=== PATIENT | female | born 1950 | race Caucasian/White ===

== ENCOUNTER 2016-12-10 10:41 | Outpatient (CLI) | payer MEDICARE | END 2016-12-10 10:42 | disposition home or self-care (01) | DX: Z00.00 Encounter for general adult medical examination without abnormal findings (principal) ==

== ENCOUNTER 2017-04-02 10:38 | Outpatient (CLI) | payer MEDICARE ==
--- NOTE | 2017-04-03 16:58 | Mammography Report ---
DIGITAL SCREENING MAMMOGRAM: 04/02/2017 CLINICAL INDICATION: A 66-year-old with family history of breast cancer for screening. COMPARISON: 07/2013, 05/2012, 04/2011, 04/2010. TECHNIQUE: Routine CC and MLO projections as well as bilateral laterally exaggerated craniocaudal vi ews were obtained of the breasts. NOTE: MLO positioning is limited by patient's general condition. FINDINGS: Parenchymal tissue within the breasts is predominantly fatty replaced. There are no domin ant masses, suspicious microcalcifications, or secondary signs of malignancy. In comparison to the p revious studies, there are no significant changes. IMPRESSION: NO MAMMOGRAPHIC EVIDENCE OF MALIGNANCY. NO SIGNIFICANT INTERVAL CHANGES. RECOMMENDATION: Screening mammography is recommended annually. BIRADS category 1 - negative. STANDARD QUALIFYING STATEMENTS 1. This examination was reviewed with the aid of Computed-Aided Detection (CAD). 2. A negative or benign imaging report should not delay biopsy if clinically suspicious findings are present. Consider surgical consultation if warranted. More than 5% of cancers are not identified b y imaging. 3. Dense breasts may obscure an underlying neoplasm. JOB #: [id number] EXT JOB #:[id number]
== END 2017-04-02 10:39 | disposition home or self-care (01) ==
LOC: DI.S 10:38
PROVIDERS: ATTEND Family Medicine
DX: Z12.31 Encounter for screening mammogram for malignant neoplasm of breast (principal)
CPT/HCPCS: 77067

== ENCOUNTER 2018-04-09 08:58 | Outpatient (CLI) | payer MEDICARE ==
[2018-04-09 11:43] LABS: BASOPHILS # (AUTO) 0.1 10^3/uL (0.0-0.1); BASOPHILS % (AUTO) 1.3 %; EOSINOPHILS # (AUTO) 0.3 10^3/uL (0.0-0.7); EOSINOPHILS % (AUTO) 4.6 %; HGB - HEMOGLOBIN 14.3 g/dL (12.0-16.0); LYMPHOCYTES # (AUTO) 2.3 10^3/uL (1.5-3.5); LYMPHOCYTES % (AUTO) 33.3 %; MEAN CORPUSCULAR HEMOGLOBIN 30.1 pg (27.0-31.0); MEAN CORPUSCULAR HGB CONC 33.7 g/dL (32.0-36.0); MEAN CORPUSCULAR VOLUME 89.5 fL (81.0-99.0); MEAN PLATELET VOLUME 8.7 fL (7.9-10.8); MONOCYTES # (AUTO) 0.7 10^3/uL (0.0-1.0); MONOCYTES % (AUTO) 9.4 %; NEUTROPHILS # (AUTO) 3.6 10^3/uL (1.5-6.6); NEUTROPHILS % (AUTO) 51.4 %; PLT - PLATELET COUNT 427 10^3/uL (130-450); RED BLOOD COUNT 4.74 10^6/uL (4.20-5.40); RED CELL DISTRIBUTION WIDTH 14.4 % (12.0-15.0)
[2018-04-09 12:01] LABS: ALBUMIN 3.5 g/dL (3.2-5.5); ALBUMIN/GLOBULIN RATIO 0.8 (1.0-2.2); ALKALINE PHOSPHATASE 108 IU/L (42-121); ALT ALANINE AMINOTRANSFERASE 14 IU/L (10-60); AST ASPARTATE AMINOTRANSFERASE 19 IU/L (10-42); BILIRUBIN,TOTAL 0.7 mg/dL (0.2-1.0); BUN - BLOOD UREA NITROGEN 20 mg/dL (6-20); CARBON DIOXIDE - CO2 26 mmol/L (21-32); CHLORIDE 105 mmol/L (101-111); CHOL/HDL RATIO 3.5 (<4.4); CHOLESTEROL 215 mg/dL; CREATININE 0.8 mg/dL (0.4-1.0); GFR - MDRD 72 (>89); GLUCOSE 83 mg/dL (70-100); HDL CHOLESTEROL 61 mg/dL; LDL CHOLESTEROL,CALCULATED 136 mg/dL; LDL/HDL RATIO 2.2 (<4.4); SODIUM 137 mmol/L (135-145); TOTAL PROTEIN 7.9 g/dL (6.7-8.2); VLDL CHOLESTEROL 18 mg/dL
== END 2018-04-09 08:59 | disposition home or self-care (01) ==
LOC: LAB.F 08:58
PROVIDERS: ATTEND Family Medicine
DX: Z00.00 Encounter for general adult medical examination without abnormal findings (principal); E78.5 Hyperlipidemia, unspecified
CPT/HCPCS: 36415; 80053; 80061; 83721; 85025

== ENCOUNTER 2018-07-14 13:12 | Outpatient (CLI) | payer MEDICARE ==
--- NOTE | 2018-07-15 07:05 | Ultrasound Report ---
Reason: PAIN IN LEFT LOWER LIMB Procedure Date: 07/14/2018 Accession Number: [id number] / [id number] Procedure: US - Duplex Ext Veins Left CPT Code: FULL RESULT: EXAM: LEFT LOWER EXTREMITY VENOUS ULTRASOUND EXAM DATE: 07/14/2018 03:04 PM. CLINICAL HISTORY: PAIN IN LEFT LOWER LIMB. COMPARISON: None. TECHNIQUE: Real-time sonographic vascular imaging was performed by the innersole maker through the lower extremity utilizing both color-flow and Doppler spectral analysis. Multiple fundraising sale representative static images were saved for review. FINDINGS: Common Femoral Vein (CFV): Normal. CFV-GSV Junction: Normal. Profunda Femoral Vein (PFV): Normal. Femoral Vein (FV) Prox: Normal. Femoral Vein (FV) Mid: Normal. Femoral Vein (FV) Dist: Normal. Popliteal Vein: Normal. Posterior Tibial Veins: Normal. Peroneal Veins: Normal. Other: None. IMPRESSION: No evidence for left leg deep venous thrombosis. [facility]
== END 2018-07-14 13:13 | disposition home or self-care (01) ==
LOC: DI 13:12
PROVIDERS: ATTEND Physician Assistant Medical
DX: M79.605 Pain in left leg (principal)

== ENCOUNTER 2018-08-04 11:32 | Outpatient (CLI) | payer MEDICARE | END 2018-08-04 11:33 | disposition EMS.NT | LOC: EMS 11:32 | PROVIDERS: ATTEND Surgery | DX: Z03.89 Encounter for observation for other suspected diseases and conditions ruled out (principal) ==

== ENCOUNTER 2019-04-01 10:31 | Outpatient (CLI) | payer MEDICARE ==
[2019-04-01 17:39] LABS: BASOPHILS # (AUTO) 0.1 10^3/uL (0.0-0.1); BASOPHILS % (AUTO) 1.5 %; EOSINOPHILS # (AUTO) 0.3 10^3/uL (0.0-0.7); EOSINOPHILS % (AUTO) 6.2 %; HGB - HEMOGLOBIN 13.7 g/dL (12.0-16.0); LYMPHOCYTES % (AUTO) 37.9 %; MEAN CORPUSCULAR HEMOGLOBIN 29.4 pg (27.0-31.0); MEAN CORPUSCULAR HGB CONC 31.4 g/dL (32.0-36.0); MEAN CORPUSCULAR VOLUME 93.6 fL (81.0-99.0); MEAN PLATELET VOLUME 10.9 fL (7.9-10.8); MONOCYTES # (AUTO) 0.5 10^3/uL (0.0-1.0); MONOCYTES % (AUTO) 9.4 %; NEUTROPHILS # (AUTO) 2.4 10^3/uL (1.5-6.6); NEUTROPHILS % (AUTO) 44.8 %; PLT - PLATELET COUNT 381 10^3/uL (130-450); RED BLOOD COUNT 4.66 10^6/uL (4.20-5.40); RED CELL DISTRIBUTION WIDTH 14.3 % (12.0-15.0); WHITE BLOOD COUNT 5.3 x10^3/uL (4.8-10.8)
[2019-04-01 18:56] LABS: ALBUMIN 3.4 g/dL (3.2-5.5); ALBUMIN/GLOBULIN RATIO 0.9 (1.0-2.2); ALKALINE PHOSPHATASE 116 IU/L (42-121); ALT ALANINE AMINOTRANSFERASE 13 IU/L (10-60); AST ASPARTATE AMINOTRANSFERASE 16 IU/L (10-42); BILIRUBIN,TOTAL 0.5 mg/dL (0.2-1.0); BUN - BLOOD UREA NITROGEN 19 mg/dL (6-20); CALCIUM 9.2 mg/dL (8.5-10.3); CARBON DIOXIDE - CO2 23 mmol/L (21-32); CHLORIDE 110 mmol/L (101-111); CHOL/HDL RATIO 3.1 (<4.4); CHOLESTEROL 211 mg/dL; CREATININE 0.9 mg/dL (0.4-1.0); GFR - MDRD 62 (>89); GLUCOSE 91 mg/dL (70-100); HDL CHOLESTEROL 67 mg/dL; LDL CHOLESTEROL,CALCULATED 126 mg/dL; LDL/HDL RATIO 1.9 (<4.4); SODIUM 144 mmol/L (135-145); VLDL CHOLESTEROL 18 mg/dL
== END 2019-04-01 10:32 | disposition home or self-care (01) ==
LOC: LAB.S 10:31
PROVIDERS: ATTEND Physician Assistant Medical
DX: E78.5 Hyperlipidemia, unspecified (principal); Z51.81 Encounter for therapeutic drug level monitoring
CPT/HCPCS: 36415; 80053; 80061; 83721; 85025

== ENCOUNTER 2020-03-28 12:59 | Outpatient (CLI) | payer MEDICARE ==
--- NOTE | 2020-03-28 17:57 | DEXA Report ---
Reason: POST MENOPAUSAL Procedure Date: 03/28/2020 Accession Number: [id number] / [id number] Procedure: DEX - Dexa Spine and/or Hip CPT Code: Final Report FULL RESULT: PROCEDURE: Dexa Spine and/or Hip INDICATIONS: POST MENOPAUSAL TECHNIQUE: Dual energy x-ray absorptiometry (DXA) was performed on a [employer] System. Regions measured are the AP Spine, femoral neck, and if needed forearm. COMPARISON: None. FINDINGS: Lumbar Spine: Bone Mineral Density 0.950 g/cm/cm,T score -1.9, osteopenia Left Hip: Bone Mineral Density 0.717 g/cm/cm,T score -2.3, osteopenia Left Femoral Neck: Bone Mineral Density 0.759 g/cm/cm, T score -2.0, osteopenia (T score greater or equal to -1.0: NORMAL) (T score from -1.1 to -2.4: OSTEOPENIA) (T score less than or equal to -2.5 to: OSTEOPOROSIS) Impression: 1. Osteopenia elevates the patient's fracture risk. Patients with diagnosis of osteoporosis or osteopenia should have regular bone mineral density assessment. For those eligible for Medicare, routine testing is allowed once every 2 years. Testing frequency can be increased for patients who have rapidly progressing disease or for those who are receiving medical therapy to restore bone mass. Reviewed by: Belkys Posey MD on 03/28/2020 4:56 PM [facility] Approved by: Belkys Posey MD on 03/28/2020 4:56 PM [facility] Station ID: [id number]
== END 2020-03-28 13:00 | disposition home or self-care (01) ==
LOC: DI 12:59
PROVIDERS: ATTEND Registered Nurse
DX: M85.89 Other specified disorders of bone density and structure, multiple sites (principal)
CPT/HCPCS: 77080

== ENCOUNTER 2020-05-18 10:21 | Day surgery (SDC) | payer MEDICARE ==
[2020-05-18] MEDS ORDERED: LACTATED RINGERS 1,000 ML IV ONE (10:24)
[2020-05-18] MEDS ORDERED: fentaNYL 250 MCG/5 ML VIAL IVP ONE (12:33)
[2020-05-18] MEDS ORDERED: MIDAZOLAM 2 MG/2 ML VIAL IVP ONE (12:33)
[2020-05-18] MEDS ORDERED: LACTATED RINGERS 650 ML IV ONE (13:02)
[2020-05-18 13:40] VITALS: BP 130/66
== END 2020-05-18 10:22 | disposition home or self-care (01) ==
LOC: SDS 10:21
PROVIDERS: ATTEND Surgery
PROC: 0DBL8ZX Excision of Transverse Colon, Via Natural or Artificial Opening Endoscopic, Diagnostic (ICD-10-PCS; 2020-05-18)
PROC: 0DBN8ZZ Excision of Sigmoid Colon, Via Natural or Artificial Opening Endoscopic (ICD-10-PCS; principal; 2020-05-18 11:30)
DX: Z12.11 Encounter for screening for malignant neoplasm of colon (principal); K63.5 Polyp of colon; K57.30 Diverticulosis of large intestine without perforation or abscess without bleeding; K63.3 Ulcer of intestine; G89.29 Other chronic pain; M54.5 Low back pain; E78.5 Hyperlipidemia, unspecified; M79.7 Fibromyalgia; E66.01 Morbid (severe) obesity due to excess calories; Z68.42 Body mass index [BMI] 45.0-49.9, adult; R60.0 Localized edema
CPT/HCPCS: 45380; 45385; J3010; J7120

== ENCOUNTER 2022-01-10 10:28 | Outpatient (CLI) | payer MEDICARE ==
[2022-01-10 14:10] LABS: BASOPHILS # (AUTO) 0.1 10^3/uL (0.0-0.1); BASOPHILS % (AUTO) 1.6 %; EOSINOPHILS # (AUTO) 0.3 10^3/uL (0.0-0.7); EOSINOPHILS % (AUTO) 6.2 %; HCT - HEMATOCRIT 42.5 % (37.0-47.0); HGB - HEMOGLOBIN 13.6 g/dL (12.0-16.0); LYMPHOCYTES # (AUTO) 1.7 10^3/uL (1.5-3.5); LYMPHOCYTES % (AUTO) 34.5 %; MEAN CORPUSCULAR HEMOGLOBIN 28.5 pg (27.0-31.0); MEAN CORPUSCULAR VOLUME 89.1 fL (81.0-99.0); MEAN PLATELET VOLUME 9.8 fL (7.9-10.8); MONOCYTES # (AUTO) 0.5 10^3/uL (0.0-1.0); MONOCYTES % (AUTO) 10.3 %; NEUTROPHILS # (AUTO) 2.3 10^3/uL (1.5-6.6); PLT - PLATELET COUNT 451 10^3/uL (130-450); RED BLOOD COUNT 4.77 10^6/uL (4.20-5.40); RED CELL DISTRIBUTION WIDTH 14.9 % (12.0-15.0); WHITE BLOOD COUNT 4.9 x10^3/uL (4.8-10.8)
[2022-01-10 14:34] LABS: ALBUMIN 3.2 g/dL (3.2-5.5); ALBUMIN/GLOBULIN RATIO 0.9 (1.0-2.2); ALKALINE PHOSPHATASE 114 IU/L (42-121); ALT ALANINE AMINOTRANSFERASE 16 IU/L (10-60); AST ASPARTATE AMINOTRANSFERASE 17 IU/L (10-42); BILIRUBIN,TOTAL 0.5 mg/dL (0.2-1.0); BUN - BLOOD UREA NITROGEN 19 mg/dL (6-20); CALCIUM 9.1 mg/dL (8.5-10.3); CARBON DIOXIDE - CO2 24 mmol/L (21-32); CHLORIDE 103 mmol/L (101-111); CHOLESTEROL 239 mg/dL; GFR - MDRD 55 (>89); GLUCOSE 95 mg/dL (70-100); HDL CHOLESTEROL 79 mg/dL; LDL CHOLESTEROL,CALCULATED 144 mg/dL; LDL/HDL RATIO 1.8 (<4.4); POTASSIUM 4.3 mmol/L (3.5-5.0); SODIUM 137 mmol/L (135-145); TOTAL PROTEIN 6.9 g/dL (6.7-8.2); TRIGLYCERIDES 80 mg/dL; VLDL CHOLESTEROL 16 mg/dL
[2022-01-10 15:09] LABS: THYROID STIMULATING HORMONE 5.46 uIU/mL (0.34-5.60)
== END 2022-01-10 10:29 | disposition home or self-care (01) ==
LOC: LAB.S 10:28
PROVIDERS: ATTEND Registered Nurse
DX: E66.01 Morbid (severe) obesity due to excess calories (principal); E78.5 Hyperlipidemia, unspecified; K21.9 Gastro-esophageal reflux disease without esophagitis; M79.7 Fibromyalgia; F41.9 Anxiety disorder, unspecified; F32.A Depression, unspecified
CPT/HCPCS: 36415; 80053; 80061; 83721; 84443; 85025

== ENCOUNTER 2023-06-18 10:41 | Outpatient (CLI) | payer MEDICARE ==
[2023-06-18 14:38] LABS: BASOPHILS # (AUTO) 0.1 10^3/uL (0.0-0.1); BASOPHILS % (AUTO) 1.8 %; EOSINOPHILS # (AUTO) 0.4 10^3/uL (0.0-0.7); HCT - HEMATOCRIT 41.7 % (37.0-47.0); LYMPHOCYTES % (AUTO) 35.9 %; MEAN CORPUSCULAR HEMOGLOBIN 26.7 pg (27.0-31.0); MEAN CORPUSCULAR HGB CONC 31.2 g/dL (32.0-36.0); MEAN CORPUSCULAR VOLUME 85.6 fL (81.0-99.0); MEAN PLATELET VOLUME 9.8 fL (7.9-10.8); MONOCYTES # (AUTO) 0.6 10^3/uL (0.0-1.0); MONOCYTES % (AUTO) 10.5 %; NEUTROPHILS # (AUTO) 2.5 10^3/uL (1.5-6.6); NEUTROPHILS % (AUTO) 44.6 %; PLT - PLATELET COUNT 472 10^3/uL (130-450); RED BLOOD COUNT 4.87 10^6/uL (4.20-5.40); WHITE BLOOD COUNT 5.7 x10^3/uL (4.8-10.8)
[2023-06-18 15:04] LABS: THYROID STIMULATING HORMONE 3.63 uIU/mL (0.34-5.60)
[2023-06-18 15:55] LABS: ALBUMIN 3.8 g/dL (3.2-5.5); ALBUMIN/GLOBULIN RATIO 1.1 (1.0-2.2); ALKALINE PHOSPHATASE 146 IU/L (42-121); ALT ALANINE AMINOTRANSFERASE 10 IU/L (10-60); AST ASPARTATE AMINOTRANSFERASE 14 IU/L (10-42); BILIRUBIN,TOTAL 0.5 mg/dL (0.2-1.0); BUN - BLOOD UREA NITROGEN 18 mg/dL (6-20); CALCIUM 9.6 mg/dL (8.5-10.3); CARBON DIOXIDE - CO2 29 mmol/L (21-32); CHLORIDE 105 mmol/L (101-111); CHOL/HDL RATIO 3.2 (<4.4); CHOLESTEROL 225 mg/dL; CREATININE 1.1 mg/dL (0.6-1.3); GFR - MDRD 49 (>89); GLUCOSE 93 mg/dL (74-104); HDL CHOLESTEROL 71 mg/dL; LDL CHOLESTEROL,CALCULATED 129 mg/dL; LDL/HDL RATIO 1.8 (<4.4); POTASSIUM 4.6 mmol/L (3.5-4.5); SODIUM 140 mmol/L (135-145); TOTAL PROTEIN 7.3 g/dL (6.4-8.9); TRIGLYCERIDES 126 mg/dL (48-352); VLDL CHOLESTEROL 25 mg/dL
== END 2023-06-18 10:42 | disposition home or self-care (01) ==
LOC: LAB.S 10:41
PROVIDERS: ATTEND Registered Nurse
DX: E78.5 Hyperlipidemia, unspecified (principal)
CPT/HCPCS: 36415; 80053; 80061; 83721; 84443; 85025